=== PATIENT | female | born 1995 | race Caucasian/White ===

== ENCOUNTER 2016-10-20 21:36 | Emergency (ER) | payer OTHER ==
[~2016-10-20] VITALS: Ht 152.4 cm; Wt 63.5 kg
[~2016-10-20 21:36] MED LIST: DOCO200C4 PO; FERR160T5 PO; IBUP-1773 PO; METR500T PO
--- NOTE | 2016-10-20 23:08 | ED Lower Extremity ---
General Chief Complaint: Lower Extremity Stated Complaint: L ANKLE PAIN Nursing Triage Note: PT STATES SHE WAS LONGBOARDING AND FELL AND ROLLED HER L ANKLE. Nursing Sepsis Screen: No Definite Risk Source: patient Exam Limitations: no limitations History of Present Illness Time seen by provider: 23:07 Initial Comments Patient twisted her ankle medially after falling off of her long board earlier this evening. No other injury. Complains of lateral ankle pain on the left. Onset: this evening Severity: moderate Pain/Injury Location: left ankle Method of Injury: twisted Modifying Factors: Worse With Movement Allergies and Home Medications Allergies Coded Allergies: Penicillins (Verified Allergy, Unknown, RASH, 01/29/15) Home Medications Docosahexanoic Acid 200 Mg Capsule, 200 MG PO DAILY, (Reported) Ferrous Sulfate, Dried 160 Mg Tablet.er, 160 MG PO DAILY, (Reported) Ibuprofen 600 Mg Tablet, 600 MG PO Q6H, #40 Prescribed by: NEWTON MONTENEGRO on 01/31/15 1106 Metronidazole 500 Mg Tablet, 500 MG PO BID, #14 Prescribed by: NEWTON MONTENEGRO on 01/31/15 1108 Constitutional: see HPI EENTM: see HPI Respiratory: no symptoms reported Cardiovascular: no symptoms reported Genitourinary: no symptoms reported Musculoskeletal: see HPI Skin: no symptoms reported Psychiatric/Neurological: No Symptoms Reported Past Prtgrgo-Ufjsqk-Yqonlt Hx Patient Social History Alcohol Use: Denies Use Recreational Drug Use: No Smoking Status: Current Everyday Smoker Type Used: Cigarettes Recent Foreign Travel: No Contact w/Someone Who Travel: No Recent Infectious Disease Expo: No Recent Hopitalizations: No Immunizations Up To Date Tetanus Booster (TDap): Less than 5yrs PED Vaccines UTD: Yes Seasonal Allergies Seasonal Allergies: No Surgeries HX Surgeries: No Respiratory Hx Respiratory Disorders: No Cardiovascular Hx Cardiac Disorders: No Neurological Hx Neurological Disorders: No Reproductive System Hx Reproductive Disorders: No Genitourinary Hx Genitourinary Disorders: No Gastrointestinal Hx Gastrointestinal Disorders: No Musculoskeletal Hx Musculoskeletal Disorders: No Endocrine Hx Endocrine Disorders: No HEENT HX ENT Disorders: No Cancer Hx Cancer: No Psychosocial Hx Psychiatric Problems: No Integumentary HX Skin/Integumentary Disorder: Yes Skin/Integumentary Disorders: Eczema Blood Transfusions Hx Blood Disorders: No Adverse Reaction to a Blood Tr: No Family Medical History Significant Family History: No Pertinent Family Hx Family Medial History: Patient reports no known family medical history. Physical Exam Vital Signs Vital Sign - Last 12Hours 10/20/16 23:02 Temp 97.0 Pulse 93 Resp 18 B/P (MAP) 120/68 Capillary Refill : Less Than 3 Seconds General Appearance: WD/WN, no apparent distress HEENT: PERRL/EOMI, normal ENT inspection Neck: non-tender, full range of motion Respiratory: no respiratory distress, no accessory muscle use Gastrointestinal: non tender, soft Hips: bilateral hip non-tender, bilateral hip normal inspection, bilateral hip normal range of motion Legs: bilateral leg non-tender, bilateral leg normal inspection, bilateral leg normal range of motion Knees: bilateral knee non-tender, bilateral knee normal inspection, bilateral knee normal range of motion Ankles: left ankle pain, left ankle soft tissue tenderness, left ankle swelling , left ankle other (unable to bear weight on the left ankle due to pain. Dorsalis pedis pulses +2. There is no deformity however there is swelling over the lateral malleolus.) Feet: bilateral foot non-tender, bilateral foot normal inspection, bilateral foot normal range of motion Neurologic/Psychiatric: alert, normal mood/affect, oriented x 3 Skin: normal color, warm/dry Progress/Results/Core Measures Results/Orders My Orders Orders - JOSEFA SALINAS APRN Ankle, Left, 3 Views (10/20/16 23:00) Vital Signs/I&O Vital Sign - Last 12Hours 10/20/16 23:02 Temp 97.0 Pulse 93 Resp 18 B/P (MAP) 120/68 Blood Pressure Mean: 85 Departure Impression Impression: Primary Impression: Ankle sprain Disposition: 01 HOME, SELF-CARE Condition: Stable Departure-Patient Inst. Decision time for Depature: 23:26 Referrals: TUCKER FELIX MD (PCP/Family) Primary Care Physician Patient Instructions: Ankle Sprain (DC) Add. Discharge Instructions: 1. Use crutches as needed for pain with walking 2. Keep the foot elevated as much as possible tonight and tomorrow. Tylenol and Motrin for pain and use an ice pack for 20 minutes to 30 minutes every 1 hour to help reduce swelling 3. When you're able to bear weight without pain and you may stop using the crutches. If pain persists beyond 2 weeks you should follow-up with your regular doctor to discuss an MRI All discharge instructions reviewed with patient and/or family. Voiced understanding. JOSEFA SALINAS APRN Oct 20, 2016 23:08
[2016-10-20 23:35] VITALS: BP 120/68
--- NOTE | 2016-10-21 08:18 | Diagnostic Imaging Report ---
INDICATION: Left ankle pain. AP, oblique, and lateral views of left ankle are obtained. FINDINGS: No fracture or acute bony abnormality is seen. Joint spaces are unremarkable. IMPRESSION: Negative left ankle. Dictated by: Dictated on workstation # [id number]
== END 2016-10-20 23:35 | disposition home or self-care (01) ==
LOC: EDUNIT# 21:36 → ER 21:38
DX: S93.401A Sprain of unspecified ligament of right ankle, initial encounter (principal); F17.210 Nicotine dependence, cigarettes, uncomplicated; W18.39XA Other fall on same level, initial encounter; X50.0XXA Overexertion from strenuous movement or load, initial encounter; Y93.51 Activity, roller skating (inline) and skateboarding
CPT/HCPCS: 73610; 99283

== ENCOUNTER → 2021-05-23 | Outpatient (CLI) | payer OTHER ==
--- NOTE | 2021-05-23 14:21 | Diagnostic Imaging Report ---
INDICATION: survey. TECHNIQUE: Multiple Real-time grayscale images were obtained over the gravid uterus. COMPARISON: None. FINDINGS: There is a single live fetus in a transverse presentation with the head to the maternal left. heart rate was recorded at 163 BPM. Placenta is anterior. There appears to be a complete placenta previa at this time. Amniotic fluid volume is normal. survey shows kidneys, bladder, and stomach to be unremarkable. brain is unremarkable. There is a four-chamber heart. cord evaluation as well as spine evaluation is somewhat limited due to position. Followup could be performed. Biometrical measurements are as follows: Biparietal 4.59 cm, age 20 weeks 0 days. Head circumference 17.62 cm, age 20 weeks 1 days. Abdominal circumference 15.89 cm, age 21 weeks 1 days. Femur length 3.36 cm, age 20 weeks 4 days. Sonographic estimate age: 20 weeks 4 days. Sonographic estimated date of delivery: 10/06/2021. Estimated Weight: 371 gm (+/- 54 gm). LMP percentile: 76%. heart rate: 163 beats per minute. number: 1 of 1. IMPRESSION: 1. Single live IUP of 20 weeks 4 days gestational age. Estimated date of confinement sonographically is 10/06/2021. 2. Complete placenta previa. 3. Suboptimal evaluation of the cord and spine anatomy. Followup could be performed. Dictated by: Dictated on workstation # [id number]
== END ==
LOC: RAD 12:47
PROVIDERS: ATTEND Nurse Practitioner Women's Health
DX: O44.02 Complete placenta previa NOS or without hemorrhage, second trimester (principal); Z3A.20 20 weeks gestation of pregnancy
CPT/HCPCS: 76805

== ENCOUNTER → 2021-06-22 | Outpatient (CLI) | payer OTHER ==
--- NOTE | 2021-06-22 14:05 | Diagnostic Imaging Report ---
INDICATION: Follow-up anatomy not seen on prior examination. Placenta previa TECHNIQUE: Multiple real-time grayscale images were obtained over the gravid uterus. COMPARISON: 05/23/2021 FINDINGS: Single live intrauterine is in cephalic presentation. The cervix measures 6.4 cm in length. The placenta is anterior position and there is no previa with the inferior margin of the placenta located 6 cm from the internal cervical os. heart rate is 156 bpm. The umbilical cord insertion, three-vessel cord and spine are all normal. IMPRESSION: 1. Placenta previa has resolved. 2. The spine and umbilical cord are normal. Dictated by: Dictated on workstation # [id number]
== END ==
LOC: RAD 09:55
PROVIDERS: ATTEND Obstetrics & Gynecology
DX: O44.02 Complete placenta previa NOS or without hemorrhage, second trimester (principal); Z3A.00 Weeks of gestation of pregnancy not specified
CPT/HCPCS: 76805; 76817

== ENCOUNTER 2021-09-12 23:22 | Inpatient (IN) | payer OTHER ==
[~2021-09-12] VITALS: Ht 149.9 cm; Wt 74.2 kg
[2021-09-12 23:52] VITALS: BP 105/55
[2021-09-12 23:58] LABS: BILIRUBIN,URINE NEGATIVE (NEGATIVE); CLARITY,URINE CLEAR; COLOR,URINE YELLOW; GLUCOSE, URINE (UA) NEGATIVE (NEGATIVE); KETONES,URINE NEGATIVE (NEGATIVE); LEUKOCYTE ESTERASE ,URINE NEGATIVE (NEGATIVE); NITRITE,URINE NEGATIVE (NEGATIVE); PROTEIN,URINE NEGATIVE (NEGATIVE)
[2021-09-13] VITALS (48 sets, daily range): BP systolic 97–142; BP diastolic 52–688
[2021-09-13 00:10] LABS: BACTERIA,URINE TRACE /HPF
[2021-09-13] MEDS ORDERED: ceFAZolin 2 GM IV Premixed 50 ML IV SCH (00:51)
[2021-09-13] MEDS ORDERED: D5 LR IV SOLUTION 1,000 ML IV ONE (00:56)
[2021-09-13] MEDS ORDERED: NS (IVPB) 0 ML ONE (00:56)
[2021-09-13] MEDS ORDERED: LIDOCAINE/EPI 2% 1:200,00 (XYLOCAINE) 20 ML VIAL INJ PRN (01:00)
[2021-09-13] MEDS ORDERED: OXYTOCIN PRE-MIX DRIP 500 ML IV SCH ×2 (01:00→08:30)
[2021-09-13] MEDS: D5 LR IV SOLUTION 1,000 ML IV SCH ×2 (01:08→08:24)
[2021-09-13 01:14] LABS: BASOPHILS % (AUTO) 0 % (0-10); EOSINOPHILS # (AUTO) 0.2 10^3/uL (0.0-0.3); EOSINOPHILS % (AUTO) 1 % (0-10); HEMATOCRIT 31 % (35-52); HEMOGLOBIN 10.7 g/dL (11.5-16.0); LYMPHOCYTES # (AUTO) 2.8 10^3/uL (1.0-4.0); LYMPHOCYTES % (AUTO) 20 % (12-44); MEAN CORPUSCULAR HEMOGLOBIN 32 pg (25-34); MEAN CORPUSCULAR HGB CONC 34 g/dL (32-36); MEAN CORPUSCULAR VOLUME 93 fL (80-99); MEAN PLATELET VOLUME 9.7 fL (9.0-12.2); MONOCYTES # (AUTO) 1.4 10^3/uL (0.0-1.0); MONOCYTES % (AUTO) 10 % (0-12); NEUTROPHILS # (AUTO) 9.8 10^3/uL (1.8-7.8); NEUTROPHILS % (AUTO) 68 % (42-75); PLATELET COUNT 354 10^3/uL (130-400); WHITE BLOOD COUNT 14.5 10^3/uL (4.3-11.0)
[2021-09-13] MEDS ORDERED: fentaNYL 2 mcg/ml BUPIVA 0.125 100 ML ONE (04:55)
[2021-09-13] MEDS ORDERED: fentaNYL INJ 100 MCG/2 ML AMP ONE (05:58)
[2021-09-13] MEDS ORDERED: BUPIVACAINE 0.25% 10 ML (SENSORCAINE) VIAL ONE (05:58)
[2021-09-13] MEDS ORDERED: CATHETER FLUSH 10 ML SYR IV SCH ×2 (06:00→14:00)
[2021-09-13] MEDS ORDERED: diphenhydrAMINE 50 MG/ML INJ (BENADRYL) IV PRN (06:30)
[2021-09-13] MEDS ORDERED: ONDANSETRON 4 MG/2 ML (SDV) Z0FRAN IV PRN (06:30)
[2021-09-13] MEDS ORDERED: EPIDURAL (fentaNYL 2 MCG/ML BUPIVA 0.125%)100 ML BAG EPI PRN (06:30)
[2021-09-13] MEDS ORDERED: NALOXONE 0.4 MG/ML 1 ML (NARCAN) VIAL IV PRN ×2 (06:30→08:30)
[2021-09-13] MEDS ORDERED: LACTATED RINGERS 1,000 ML IV SCH (06:30)
[2021-09-13] MEDS ORDERED: LIDOCAINE/EPI 2% 1:200,00 (XYLOCAINE) 10 ML VIAL ONE (07:18)
[2021-09-13] MEDS ORDERED: ceFAZolin INJECTION 1,000 MG ONE (07:21)
[2021-09-13] MEDS ORDERED: NS (IVPB) 50 ML ONE (07:23)
--- NOTE | 2021-09-13 08:26 | History & Physical-OB ---
OB - Chief Complaint & HPI Date/Time Date of Admission: Date of Admission: September 12, 2021 at 23:31 Date seen by a Provider: September 13, 2021 Time Seen by a Provider: 08:00 Chief Complaint/History OB-Reason for Admission/Chief: Labor Hx : 2 Hx Para: 1 Expected Date of Delivery: Oct 09, 2021 Gestational Age in Weeks: 36 Gestational Age in Days: 2 Admission Nurse Assessment Rev: Yes History of Labs GBS unknown Allergies and Home Medications Allergies Coded Allergies: Penicillins (Verified Allergy, Unknown, RASH, 01/29/15) Patient Home Medication List Home Medication List Reviewed: Yes Docosahexanoic Acid ( Dha) 200 Mg Capsule, 200 MG PO DAILY, (Reported) Entered as Reported by: DEANNA BARKLEY on 01/29/15 151 Ferrous Sulfate, Dried (Iron) 160 Mg Tablet.er, 160 MG PO DAILY, (Reported) Entered as Reported by: DEANNA BARKLEY on 01/29/15 1518 Ibuprofen (Ibuprofen) 600 Mg Tablet, 600 MG PO Q6H Prescribed by: NEWTON MONTENEGRO on 01/31/15 1106 Metronidazole (Flagyl) 500 Mg Tablet, 500 MG PO BID Prescribed by: NEWTON MONTENEGRO on 01/31/15 1108 OB - History Hx of Present Care: Yes Ultrasounds: Normal mid trimester US Obstetrical Complications: None Medical Complications: None Delivery History Hx Blood Disorders: No Adverse Rxn to Tranfusion: No Patient Past Medical History n/a Immunizations Hepatitis A: Yes Hepatitis B: Yes Tetanus Booster (TDap): Less than 5yrs OB - Admission Exam Physical Exam Vitals: Vital Signs 09/13/21 09/13/21 06:36 06:58 Temp 36.8 Pulse 91 Resp 18 B/P (MAP) 114/68 (83) Pulse Ox 100 O2 Delivery Room Air HEENT: NCAT Heart: Rhythm Normal Lungs: Clear Abdomen: Gravid Extremities: Normal Reflexes: Normal Cervical Dilatation: 1cm Effacement: 75% Station: -1 Membranes: Ruptured Amniotic Fluid: Clear Heart Rate: 130's Accelerations: Accelerations Present Decelerations: No Decelerations Short Term Variability: Present [facility] Variability: Average (6-25) Contractions on Admission: 6-10 Minutes Apart Intensity: Mild Labs Laboratory Tests Test 09/12/21 23:35 09/12/21 23:45 09/13/21 00:50 Range/Units Urine Color YELLOW Urine Clarity CLEAR Urine pH 6.0 5-9 Urine Specific [place] 1.015 L 1.016-1.022 Urine Protein NEGATIVE NEGATIVE Urine Glucose (UA) NEGATIVE NEGATIVE Urine Ketones NEGATIVE NEGATIVE Urine Nitrite NEGATIVE NEGATIVE Urine Bilirubin NEGATIVE NEGATIVE Urine Urobilinogen 1.0 < = 1.0 MG/DL Urine Leukocyte Esterase NEGATIVE NEGATIVE Urine RBC (Auto) NEGATIVE NEGATIVE Urine RBC NONE /HPF Urine WBC NONE /HPF Urine Squamous Epithelial Cells 2-5 /HPF Urine Crystals NONE /LPF Urine Bacteria TRACE /HPF Urine Casts NONE /LPF Urine Mucus NEGATIVE /LPF Urine Culture Indicated NO Membranes Rupture POSITIVE White Blood Count 14.5 H 4.3-11.0 10^3/uL Red Blood Count 3.38 L 3.80-5.11 10^6/uL Hemoglobin 10.7 L 11.5-16.0 g/dL Hematocrit 31 L 35-52 % Mean Corpuscular Volume 93 80-99 fL Mean Corpuscular Hemoglobin 32 25-34 pg Mean Corpuscular Hemoglobin Concent 34 32-36 g/dL Red Cell Distribution Width 12.5 10.0-14.5 % Platelet Count 354 130-400 10^3/uL Mean Platelet Volume 9.7 9.0-12.2 fL Immature Granulocyte % (Auto) 2 % Neutrophils (%) (Auto) 68 42-75 % Lymphocytes (%) (Auto) 20 12-44 % Monocytes (%) (Auto) 10 0-12 % Eosinophils (%) (Auto) 1 0-10 % Basophils (%) (Auto) 0 0-10 % Neutrophils # (Auto) 9.8 H 1.8-7.8 10^3/uL Lymphocytes # (Auto) 2.8 1.0-4.0 10^3/uL Monocytes # (Auto) 1.4 H 0.0-1.0 10^3/uL Eosinophils # (Auto) 0.2 0.0-0.3 10^3/uL Basophils # (Auto) 0.0 0.0-0.1 10^3/uL Immature Granulocyte # (Auto) 0.2 H 0.0-0.1 10^3/uL OB - Assessment/Plan/Diagnosis Assessment Assessment: labor Admission Dx 26 yo @ 36.2 labor SROM GBS unknown Admission Status: Inpatient Order (span 2 midnights) Reason for Inpatient Admission: labor at 36 weeks Plan Plan: Expectant Management Other Plan Patient augmentation done with pitocin due to dysfunction uterine contraction pattern. LYNNE WONG DO September 13, 2021 08:26
[2021-09-13] MEDS ORDERED: WITCH HAZEL(TUCKS) 40 EA JAR TOP PRN (08:30)
[2021-09-13] MEDS ORDERED: DIBUCAINE 1% OINTMENT 30 GM TUBE TOP PRN (08:30)
[2021-09-13] MEDS ORDERED: BENZOCAINE/MENTHOL (DERMOPLAST) 56 ML CAN TP PRN (08:30)
[2021-09-13] MEDS ORDERED: HYDROcodone/APAP 5 MG/325 MG (LORTAB) TAB PO PRN (08:30)
[2021-09-13] MEDS ORDERED: TETANUS,DIPTH,PERTUSS P/F (BOOSTRIX) 0.5 ML VIAL IM ONE (08:30)
[2021-09-13] MEDS ORDERED: MEASLES,MUMPS,RUBELLA 1 EA INJ SQ ONE (08:30)
--- NOTE | 2021-09-13 08:36 | OB Labor & Delivery Record ---
L&D History Date of Service Date of Service: September 13, 2021 History Expected Date of Delivery: Oct 09, 2021 Gestational Age in Weeks: 36 Hx : 2 Hx Para: 1 Complications Events: Routine care Operative Indications (Cesarea: N/A-Vaginal Delivery Intrapartal Events: None L&D Stage1 Stage One Onset of Labor - Date: September 13, 2021 Monitors and Tracing Monitor Mode: External Heart Rate: 135 Monitor Accelerations: Uniform Monitor Decelerations: None Station: 0 Market Research Analyst Variability: Average (6-10) Short Term Variability: Present Presentation: Vertex Vital Signs VS - Last 72 Hours, by Label 09/12/21 09/13/21 09/13/21 09/13/21 23:52 01:00 01:15 01:30 Temp 36.7 36.7 Pulse 95 96 Resp 18 18 18 18 B/P (MAP) 105/55 (72) Pulse Ox 98 98 O2 Delivery Room Air Room Air Room Air Room Air 09/13/21 09/13/21 09/13/21 09/13/21 01:45 02:00 02:15 02:30 Temp 36.7 36.7 Pulse 87 86 94 88 Resp 18 18 18 18 B/P (MAP) 100/53 (69) 101/58 (72) 103/56 (72) 104/55 (71) O2 Delivery Room Air Room Air Room Air Room Air 09/13/21 09/13/21 09/13/21 09/13/21 02:45 03:00 03:15 03:30 Pulse 91 92 90 85 Resp 18 18 18 18 B/P (MAP) 101/55 (70) 121/68 (85) 122/63 (82) 109/60 (76) O2 Delivery Room Air Room Air Room Air Room Air 09/13/21 09/13/21 09/13/21 09/13/21 03:45 04:00 04:15 04:30 Pulse 92 93 81 96 Resp 18 18 18 18 B/P (MAP) 104/57 (73) 119/75 (90) 110/71 (84) 117/74 (88) O2 Delivery Room Air Room Air Room Air Room Air 09/13/21 09/13/21 09/13/21 09/13/21 04:45 05:00 05:15 05:30 Temp 37.1 Pulse 104 100 109 106 Resp 18 18 18 18 B/P (MAP) 118/69 (85) 113/68 (83) 137/60 (85) 136/76 (96) O2 Delivery Room Air Room Air Room Air Room Air 09/13/21 09/13/21 09/13/21 09/13/21 05:45 05:59 06:00 06:07 Pulse 105 104 104 103 Resp 18 18 18 18 B/P (MAP) 123/69 (87) 126/72 (90) 125/59 (81) 139/71 (93) Pulse Ox 99 O2 Delivery Room Air Room Air Room Air Room Air 09/13/21 09/13/21 09/13/21 09/13/21 06:12 06:18 06:23 06:26 Pulse 133 102 112 102 Resp 18 18 18 18 B/P (MAP) 134/66 (88) 124/59 (80) 116/66 (83) 119/69 (86) Pulse Ox 98 99 100 100 O2 Delivery Room Air Room Air Room Air Room Air 09/13/21 09/13/21 09/13/21 09/13/21 06:29 06:33 06:36 06:39 Temp 36.8 Pulse 93 96 81 88 Resp 18 18 18 18 B/P (MAP) 117/68 (84) 105/54 (71) 112/66 (81) 115/688 (499) Pulse Ox 100 100 100 100 O2 Delivery Room Air Room Air Room Air Room Air 09/13/21 09/13/21 09/13/21 09/13/21 06:41 06:48 06:51 06:58 Pulse 96 104 90 91 Resp 18 18 18 18 B/P (MAP) 114/69 (84) 122/73 (89) 127/77 (94) 114/68 (83) Pulse Ox 100 100 100 100 O2 Delivery Room Air Room Air Room Air Room Air Rupture of Membranes Spontaneous Ruture of Membrane: No Amniotic Membrane Rupture Time: 2129 Amniotic Membrane Fluid Desc.: Clear Vaginal Bleeding Description: Normal Show Induction/Anesthesia Epidural Cath Placement - Time: 614 Progress/Notes Patient admitted and started on pitocin, she received an epidural and progressed to complete and + 2station. L&D Stage2 Stage Two Stage II Date: September 13, 2021 Monitors and Tracing Monitor Mode: External Heart Rate: 135 Monitor Accelerations: Uniform Monitor Decelerations: Variable Usp Variability: Average (6-10) Short Term Variability: Present Position: Right Occiput Anterior Presentation: Vertex Cord Descript/Complications Cord Vessel Description: 3 Vessels Delivery Type Delivery Method: Spontaneous Vaginal Anterior Shoulder: Left Episiotomy/Perineal Laceration Laceraction(s)/Extensions: No Condition of Delivery 1 minute Comment: 9 5 minute Comment: 9 Notes Live male infant weight 6lbs, 6oz. Condition of Infant Condition of : Living Exam: No Observed Abnormalities Resuscitation Resuscitation: N/A - Spontaneous Resp L&D Stage3 Stage Three Stage III Date: September 13, 2021 Pictocin Pitocin Administration mu/min: 4 Pitocin ml/hr: 4 Pitocin Administration Comment: 30 mu wide open at delivery of placenta Placenta Delivery Placenta Delivery: Spontaneous Delivery Summary Summary Estimated blood loss (mL): 250 Lynne Wong DO Condition of Delivery Examined: Cervix Examined, Uterus Explored Post Hemorrhage: No Condition of Mother stable Condition of (s) stable LYNNE WONG DO September 13, 2021 08:36
[2021-09-13] MEDS: DOCUSATE SODIUM 100 MG (COLACE) CAP PO SCH ×2 (09:50→20:59)
[2021-09-13] MEDS: FERROUS SULF 325 MG (IRON) TAB PO SCH (09:50)
[2021-09-13] MEDS: IBUPROFEN 600 MG (MOTRIN) TAB PO SCH ×2 (12:35→17:58)
[2021-09-13] MEDS ORDERED: ceFAZolin INJECTION 1,000 MG in NS (IVPB) 50 ML IV SCH (14:00)
[2021-09-13] MEDS ORDERED: ACETAMINOPHEN 500 MG TAB (TYLENOL) ONE (21:05)
[2021-09-13] MEDS ORDERED: ACETAMINOPHEN 500 MG TAB (TYLENOL) PO PRN (21:15)
[2021-09-14 01:55] VITALS: BP 123/80
[2021-09-14] MEDS: IBUPROFEN 600 MG (MOTRIN) TAB PO SCH ×3 (01:55→14:07)
[2021-09-14 04:00] VITALS: BP 116/61
[2021-09-14] MEDS ORDERED: PRENATAL VITAMIN 1 EA TAB PO SCH (07:00)
[2021-09-14 07:32] LABS: BASOPHILS % (AUTO) 0 % (0-10); EOSINOPHILS # (AUTO) 0.2 10^3/uL (0.0-0.3); EOSINOPHILS % (AUTO) 2 % (0-10); HEMATOCRIT 29 % (35-52); HEMOGLOBIN 9.6 g/dL (11.5-16.0); LYMPHOCYTES # (AUTO) 2.8 10^3/uL (1.0-4.0); LYMPHOCYTES % (AUTO) 23 % (12-44); MEAN CORPUSCULAR HEMOGLOBIN 32 pg (25-34); MEAN CORPUSCULAR HGB CONC 34 g/dL (32-36); MEAN CORPUSCULAR VOLUME 94 fL (80-99); MEAN PLATELET VOLUME 9.4 fL (9.0-12.2); MONOCYTES # (AUTO) 0.9 10^3/uL (0.0-1.0); MONOCYTES % (AUTO) 7 % (0-12); NEUTROPHILS # (AUTO) 8.3 10^3/uL (1.8-7.8); NEUTROPHILS % (AUTO) 67 % (42-75); PLATELET COUNT 314 10^3/uL (130-400); WHITE BLOOD COUNT 12.4 10^3/uL (4.3-11.0)
[2021-09-14 08:00] VITALS: BP 125/82
[2021-09-14] MEDS: FERROUS SULF 325 MG (IRON) TAB PO SCH (08:00)
[2021-09-14] MEDS: DOCUSATE SODIUM 100 MG (COLACE) CAP PO SCH (08:00)
--- NOTE | 2021-09-14 09:53 | Postpartum Progress Note ---
Note Note Day # 1 Subjective: Patient is without complaints. Ambulating, voiding. Tolerating a regular diet without nausea or vomiting. Normal lochia. Pain is well controlled with oral pain medications. Physical Exam: General - Alert and oriented, no apparent distress Abdomen - Soft, appropriately tender to palpation, non-distended, fundus firm at umbilicus Extremities - no edema, negative Ragini's bilaterally Assessment: Post- day # 1, status post vaginal delivery. Recovering well, hemodynamically stable Acute blood loss anemia Plan: Routine care. Encourage breast feeding. Encourage ambulation. Ferrous sulfate supplementation. Plan for discharge today or tomorrow, pending baby's DC Vitals - Labs Vital Signs - I&O Vital Signs Date Time Temp Pulse Resp B/P (MAP) Pulse Ox O2 Delivery O2 Flow Rate FiO2 09/14/21 04:00 36.0 80 18 116/61 (79) 98 Room Air 09/14/21 01:55 36.3 88 18 123/80 (94) 98 Room Air 09/13/21 20:59 36.4 87 18 120/56 (77) 98 Room Air 09/13/21 17:57 36.5 91 18 112/63 (79) Room Air 09/13/21 12:36 36.8 100 18 142/60 (87) Room Air 09/13/21 10:08 87 18 101/56 (71) Room Air 09/13/21 09:53 86 18 103/57 (72) Room Air I & O 09/14/21 07:00 Intake Total 1750 ml Balance 1750 ml Labs Laboratory Tests 09/14/21 07:16: White Blood Count 12.4H, Red Blood Count 3.05L, Hemoglobin 9.6L, Hematocrit 29L, Mean Corpuscular Volume 94, Mean Corpuscular Hemoglobin 32, Mean Corpuscular Hemoglobin Concent 34, Red Cell Distribution Width 12.7, Platelet Count 314, Mean Platelet Volume 9.4, Immature Granulocyte % (Auto) 1, Neutrophils (%) (Auto) 67, Lymphocytes (%) (Auto) 23, Monocytes (%) (Auto) 7, Eosinophils (%) (Auto) 2, Basophils (%) (Auto) 0, Neutrophils # (Auto) 8.3H, Lymphocytes # (Auto) 2.8, Monocytes # (Auto) 0.9, Eosinophils # (Auto) 0.2, Basophils # (Auto) 0.0, Immature Granulocyte # (Auto) 0.2H LAZARUS BECERRA [employer]OR[employer] MECH[employer]IC September 14, 2021 09:53
[2021-09-14] MEDS ORDERED: IBUP-844 PO (10:00)
[2021-09-14] MEDS ORDERED: BENZ78AE5 TP (10:00)
[2021-09-14] MEDS ORDERED: DIBU30OI TOP (10:00)
[2021-09-14] MEDS ORDERED: WTCHGPD TOP (10:00)
[2021-09-14] MEDS ORDERED: DOCU100C37 PO (10:00)
[2021-09-14] MEDS ORDERED: ACHD5005 PO (10:00)
--- NOTE | 2021-09-14 10:02 | Discharge Inst-Women's Service ---
Discharge Inst-Women's Serv Depart Medication/Instructions New, Converted or Re-Newed RX: Transmitted to Pharmacy Consults/Follow Up Additional Follow Up: Yes (6wk appt) Activity Activity: Activity as Tolerated Driving Instructions: No Driving for 1 Week NO SMOKING: NO SMOKING Nothing Inside Vagina: No Douching, No [place], No Tampons Diet Discharge Diet: No Restrictions Symptoms to Report to : Bleeding Excessive, Fever Over 101 Degrees F, Vaginal Bleeding Increase For Any Problems or Questions: Contact Your Physician Skin/Wound Care Bathing Instructions: LAZARUS Olsen APRN September 14, 2021 10:01
--- NOTE | 2021-09-14 11:08 | Anesthesia-Regional Post-Op ---
Regional Patient Condition Mental Status: Alert, Oriented x3 Circulation: Same as Pre-Op Headache: Absent Sensation: Full Recovery Motor Block: Absent Post Op Complications Complications None Follow Up Care/Instructions Patient Instructions None needed. Anesthesia/Patient Condition Patient is doing well, no complaints, stable vital signs, no apparent adverse anesthesia problems. No complications reported per nursing. CRISTAL WILSON CRNA September 14, 2021 11:08
[2021-09-14 14:08] VITALS: BP 125/82
== END 2021-09-14 17:00 | disposition home or self-care (01) | DRG 806 ==
LOC: WSo 23:22 → LDRP 23:23 → WSo 23:30 → LDRP 23:31
PROVIDERS: ADMIT Obstetrics & Gynecology; ATTEND Obstetrics & Gynecology
PROC: 10E0XZZ Delivery of Products of Conception, External Approach (ICD-10-PCS; principal; 2021-09-13)
PROC: 3E033VJ Introduction of Other Hormone into Peripheral Vein, Percutaneous Approach (ICD-10-PCS; 2021-09-13)
DX: O60.14X0 Preterm labor third trimester with preterm delivery third trimester, not applicable or unspecified (principal); D62 Acute posthemorrhagic anemia; Z37.0 Single live birth; Z3A.36 36 weeks gestation of pregnancy; O90.81 Anemia of the puerperium
CPT/HCPCS: 36415; 81000; 83033; 84112; 85025; 86850; 86900; 86901; 99212